=== PATIENT | male | born 1960 | race Hispanic/Latino ===

== ENCOUNTER 2019-06-18 13:33 | Emergency (ER) | payer OTHER ==
[2019-06-18] MEDS ORDERED: ONDANSETRON HCL 4 MG/2 ML VIAL ONE (14:21)
[2019-06-18] MEDS ORDERED: MORPHINE SULFATE 4 MG/1ML SYG ONE (14:21)
[2019-06-18 14:30] LABS: APPEARANCE,URINE Clear (CLEAR); BILIRUBIN,URINE Negative (NEGATIVE); COLOR,URINE Yellow (YELLOW); GLUCOSE, URINE (UA) >=1000 mg/dL (NEGATIVE); KETONES,URINE >=160 mg/dL (NEGATIVE); LEUKOCYTE ESTERASE ,URINE Negative (NEGATIVE); NITRATE,URINE Negative (NEGATIVE); OCCULT BLOOD,URINE Negative (NEGATIVE); PROTEIN,URINE Negative (NEGATIVE); UROBILINOGEN,URINE 0.2 mg/dL (0.2-1.0)
[2019-06-18] MEDS ORDERED: KETOROLAC TROMETHAMINE 30MG/ML ONE (15:29)
== END 2019-06-18 18:10 | disposition home or self-care (01) ==
LOC: EDH 13:33
DX: G89.18 Other acute postprocedural pain (principal); N48.89 Other specified disorders of penis; E11.9 Type 2 diabetes mellitus without complications; I10 Essential (primary) hypertension; Z72.0 Tobacco use; Z98.890 Other specified postprocedural states
CPT/HCPCS: 81003; 96374; 96375; 99284; J1885; J2270; J2405

== ENCOUNTER 2019-11-02 14:17 | Emergency (ER) | payer OTHER ==
[2019-11-02 15:47] LABS: BASOPHILS % (AUTO) 0.4 % (0.0-5.0); EOSINOPHILS % (AUTO) 0.3 % (0.0-8.0); HEMATOCRIT 41.7 % (42-54); LYMPHOCYTES % (AUTO) 9.4 % (21.0-51.0); MEAN CORPUSCULAR HEMOGLOBIN 31.9 pg (27.0-33.0); MEAN CORPUSCULAR HGB CONC 36.5 g/dL (32.0-36.0); MEAN CORPUSCULAR VOLUME 87.6 fL (79-99); MONOCYTES % (AUTO) 5.3 % (3.0-13.0); NEUTROPHILS % (AUTO) 83.5 % (40.0-77.0); PLATELET COUNT (AUTO) 255 K/uL (130-400); RED BLOOD CELL COUNT(AUTO) 4.76 MIL/uL (4.50-6.20); RED CELL DISTRIBUTION WIDTH 12.2 % (11.0-15.5); WHITE BLOOD COUNT (AUTO) 12.4 K/uL (4.8-10.8)
[2019-11-02 16:00] LABS: CREATININE 0.7 mg/dL (0.5-1.5); POTASSIUM 3.2 mmol/L (3.5-5.1)
[2019-11-02 16:05] LABS: ALBUMIN 3.8 g/dL (3.5-5.0); BILIRUBIN,TOTAL 0.7 mg/dL (0.2-1.0); TOTAL PROTEIN, SERUM 6.8 g/dL (6.0-8.3)
== END 2019-11-02 17:39 | disposition home or self-care (01) ==
LOC: EDH 14:17
DX: E11.649 Type 2 diabetes mellitus with hypoglycemia without coma (principal); I10 Essential (primary) hypertension; Z87.891 Personal history of nicotine dependence
CPT/HCPCS: 36415; 80053; 82948; 85025

== ENCOUNTER 2019-11-11 22:45 | Emergency (ER) | payer OTHER ==
[2019-11-11 23:45] LABS: BASOPHILS % (AUTO) 0.5 % (0.0-5.0); EOSINOPHILS % (AUTO) 0.6 % (0.0-8.0); HEMATOCRIT 40.1 % (42-54); LYMPHOCYTES % (AUTO) 9.8 % (21.0-51.0); MEAN CORPUSCULAR HEMOGLOBIN 31.1 pg (27.0-33.0); MEAN CORPUSCULAR HGB CONC 34.7 g/dL (32.0-36.0); MEAN CORPUSCULAR VOLUME 89.7 fL (79-99); MONOCYTES % (AUTO) 6.5 % (3.0-13.0); NEUTROPHILS % (AUTO) 81.9 % (40.0-77.0); PLATELET COUNT (AUTO) 276 K/uL (130-400); RED BLOOD CELL COUNT(AUTO) 4.47 MIL/uL (4.50-6.20); RED CELL DISTRIBUTION WIDTH 12.5 % (11.0-15.5); WHITE BLOOD COUNT (AUTO) 14.2 K/uL (4.8-10.8)
[2019-11-11 23:54] LABS: CREATININE 0.8 mg/dL (0.5-1.5)
[2019-11-11 23:59] LABS: ALBUMIN 3.6 g/dL (3.5-5.0); BILIRUBIN,TOTAL 0.4 mg/dL (0.2-1.0); TOTAL PROTEIN, SERUM 6.6 g/dL (6.0-8.3)
[2019-11-12 00:56] LABS: PLATELET MORPHOLOGY PLT CLUMPS PRESENT
[2019-11-12 01:57] LABS: APPEARANCE,URINE Clear (CLEAR); BILIRUBIN,URINE Negative (NEGATIVE); COLOR,URINE Yellow (YELLOW); GLUCOSE, URINE (UA) 500 mg/dL (NEGATIVE); KETONES,URINE Trace mg/dL (NEGATIVE); LEUKOCYTE ESTERASE ,URINE Negative (NEGATIVE); NITRATE,URINE Negative (NEGATIVE); OCCULT BLOOD,URINE Negative (NEGATIVE); PH,URINE 5.5 (5.0-8.0); PROTEIN,URINE Negative (NEGATIVE); UROBILINOGEN,URINE 0.2 mg/dL (0.2-1.0)
[2019-11-12 02:11] LABS: BACTERIA,URINE Rare /HPF (None Seen); MUCUS,URINE Rare LPF (None Seen); RBC,URINE 0-1 /HPF (0-1); SQUAMOUS EPITHELIAL CELL,UR 0-2 /HPF (0-2); WBC,URINE 0-1 /HPF (0-1)
== END 2019-11-12 02:32 | disposition home or self-care (01) ==
LOC: EDH 22:45
DX: E11.649 Type 2 diabetes mellitus with hypoglycemia without coma (principal); I10 Essential (primary) hypertension; G89.29 Other chronic pain; M54.5 Low back pain; Z72.0 Tobacco use
CPT/HCPCS: 36415; 80053; 81001; 82948; 85025

== ENCOUNTER 2020-09-12 13:50 | Emergency (ER) | payer OTHER, MEDICARE ==
[2020-09-12] MEDS ORDERED: LIDOCAINE HCL 1% 20 ML VIAL ONE (14:07)
[2020-09-12] MEDS ORDERED: TETANUS/DIPHTHERIA TOXOID [ADULT] 0.5 ML VIAL IM ONE (14:43)
[2020-09-12] MEDS ORDERED: CEFAZOLIN SODIUM 1 GM VIAL ONE (15:09)
== END 2020-09-12 15:43 | disposition home or self-care (01) ==
LOC: EDH 13:50
DX: S62.634A Displaced fracture of distal phalanx of right ring finger, initial encounter for closed fracture (principal); S61.214A Laceration without foreign body of right ring finger without damage to nail, initial encounter; E11.9 Type 2 diabetes mellitus without complications; I10 Essential (primary) hypertension; Z72.0 Tobacco use; W23.0XXA Caught, crushed, jammed, or pinched between moving objects, initial encounter; Y93.89 Activity, other specified; Y92.89 Other specified places as the place of occurrence of the external cause; Y99.8 Other external cause status
CPT/HCPCS: 12001; 90471; 73140; 90714; 96372; 99284; J0690

== ENCOUNTER 2021-09-22 23:22 | Observation (INO) | payer MEDICARE, OTHER ==
[~2021-09-22] VITALS: Ht 172.7 cm; Wt 82.1 kg
[2021-09-22] MEDS ORDERED: DEXTROSE 50%-WATER 50 ML DISP.SYRIN IV ONE (23:30)
[2021-09-23] MEDS ORDERED: DEXTROSE 50%-WATER 50 ML DISP.SYRIN IV ONE (00:30)
[2021-09-23 00:34] LABS: INR 1.02 (0.85-1.15); PROTHROMBIN TIME 11.1 SEC (9.6-11.6)
[2021-09-23 00:35] LABS: PARTIAL THROMBOPLASTIN TIME 23.4 SEC (26.3-35.5)
[2021-09-23 00:37] LABS: ALBUMIN 3.9 g/dL (3.5-5.0); BILIRUBIN,TOTAL 0.5 mg/dL (0.2-1.0); CREATININE 0.9 mg/dL (0.5-1.5); TOTAL PROTEIN, SERUM 6.8 g/dL (6.0-8.3)
[2021-09-23 00:40] LABS: POTASSIUM 2.7 mmol/L (3.5-5.1)
[2021-09-23 00:50] LABS: BASOPHILS % (AUTO) 0.7 % (0.0-5.0); EOSINOPHILS % (AUTO) 0.7 % (0.0-8.0); HEMATOCRIT 39.7 % (42-54); LYMPHOCYTES % (AUTO) 14.1 % (21.0-51.0); MEAN CORPUSCULAR HEMOGLOBIN 30.3 pg (27.0-33.0); MEAN CORPUSCULAR VOLUME 89.2 fL (79-99); MONOCYTES % (AUTO) 9.1 % (3.0-13.0); NEUTROPHILS % (AUTO) 73.9 % (40.0-77.0); PLATELET COUNT (AUTO) 254 K/uL (130-400); RED BLOOD CELL COUNT(AUTO) 4.45 MIL/uL (4.50-6.20); RED CELL DISTRIBUTION WIDTH 12.7 % (11.0-15.5); WHITE BLOOD COUNT (AUTO) 14.2 K/uL (4.8-10.8)
[2021-09-23] MEDS ORDERED: POTASSIUM BICARB/CIT AC 25 MEQ TABLET.EFF PO ONE (01:30)
[2021-09-23] MEDS ORDERED: CALCIUM CARB 500MG CHEW TAB PO ONE (02:00)
[2021-09-23] MEDS ORDERED: PHARMACY COMMUNICATION MISC SCH ×2 (02:00→02:30)
[2021-09-23] MEDS ORDERED: CALCIUM CARB 500MG CHEW TAB PO SCH ×2 (02:00→02:30)
[2021-09-23] MEDS ORDERED: NITROGLYCERIN 0.4 MG SL TAB SL PRN (02:30)
[2021-09-23] MEDS ORDERED: ONDANSETRON 4MG INJ IV PRN (02:30)
[2021-09-23] MEDS ORDERED: DEXTROSE 50%-WATER 50 ML DISP.SYRIN IV PRN ×2 (02:30→10:00)
[2021-09-23] MEDS ORDERED: ACETAMINOPHEN 325 MG TAB PO PRN ×2 (02:30)
[2021-09-23] MEDS ORDERED: LACTATED RINGERS 1000ML 1,000 ML IV SCH (02:30)
[2021-09-23] MEDS ORDERED: GLUCAGON 1MG KIT 1 MG ML IM PRN ×2 (02:30→10:00)
[2021-09-23 02:33] LABS: HEMOGLOBIN A1C 8.9 % (4.0-6.0)
[2021-09-23 05:53] LABS: BASOPHILS % (AUTO) 0.7 % (0.0-5.0); EOSINOPHILS % (AUTO) 0.9 % (0.0-8.0); HEMATOCRIT 43.1 % (42-54); LYMPHOCYTES % (AUTO) 24.4 % (21.0-51.0); MEAN CORPUSCULAR HEMOGLOBIN 30.7 pg (27.0-33.0); MEAN CORPUSCULAR HGB CONC 34.6 g/dL (32.0-36.0); MEAN CORPUSCULAR VOLUME 88.9 fL (79-99); MONOCYTES % (AUTO) 8.7 % (3.0-13.0); NEUTROPHILS % (AUTO) 64.4 % (40.0-77.0); PLATELET COUNT (AUTO) 220 K/uL (130-400); RED BLOOD CELL COUNT(AUTO) 4.85 MIL/uL (4.50-6.20); RED CELL DISTRIBUTION WIDTH 12.7 % (11.0-15.5); WHITE BLOOD COUNT (AUTO) 9.6 K/uL (4.8-10.8)
[2021-09-23 06:19] LABS: BILIRUBIN,TOTAL 0.8 mg/dL (0.2-1.0); CREATININE 0.7 mg/dL (0.5-1.5); MAGNESIUM 1.7 mg/dL (1.80-2.40); POTASSIUM 4.1 mmol/L (3.5-5.1); TOTAL PROTEIN, SERUM 7.4 g/dL (6.0-8.3)
[2021-09-23 07:00] LABS: AMPHET/METH SCREEN,URINE NEGATIVE (NEGATIVE); BARBITURATE SCREEN, URINE NEGATIVE (NEGATIVE); BENZODIAZEPINES SCREEN,URINE NEGATIVE (NEGATIVE); CANNABINOID SCREEN,URINE NEGATIVE (NEGATIVE); COCAINE SCREEN,URINE POSITIVE (NEGATIVE); OPIATE SCREEN,URINE NEGATIVE (NEGATIVE); PHENCYCLIDINE SCREEN,URINE POSITIVE (NEGATIVE)
[2021-09-23 07:16] LABS: APPEARANCE,URINE Clear (CLEAR); BILIRUBIN,URINE Negative (NEGATIVE); COLOR,URINE Yellow (YELLOW); GLUCOSE, URINE (UA) >=1000 mg/dL (NEGATIVE); KETONES,URINE Trace mg/dL (NEGATIVE); LEUKOCYTE ESTERASE ,URINE Negative (NEGATIVE); NITRATE,URINE Negative (NEGATIVE); OCCULT BLOOD,URINE Negative (NEGATIVE); PH,URINE 6.5 (5.0-8.0); PROTEIN,URINE Negative (NEGATIVE)
[2021-09-23 07:41] LABS: BACTERIA,URINE Rare /HPF (None Seen); RBC,URINE 0-1 /HPF (0-1); SQUAMOUS EPITHELIAL CELL,UR Rare /HPF (0-2)
[2021-09-23] MEDS: FAMOTIDINE 20MG TAB PO SCH ×2 (07:52→22:09)
[2021-09-23] MEDS: ENOXAPARIN SODIUM 30 MG/0.3 ML SQ SCH (07:53)
[2021-09-23 08:30] VITALS: BP 173/82
[2021-09-23] MEDS ORDERED: POTASSIUM CHLORIDE 20MEQ/100ML 100 ML IV PRN (10:00)
[2021-09-23] MEDS ORDERED: LIDOCAINE HCL-MPF 1% 2ML VIAL IV PRN (10:00)
[2021-09-23] MEDS ORDERED: POTASSIUM CHLORIDE 10% ELIXIR 20 MEQ/15 ML UDCUP PO PRN (10:00)
[2021-09-23] MEDS ORDERED: KCL 20 MEQ ERTAB PO PRN (10:00)
[2021-09-23] MEDS ORDERED: PHARMACY COMMUNICATION MISC PRN (10:30)
[2021-09-23] MEDS ORDERED: CHLORDIAZEPOXIDE HCL 25 MG CAP PO PRN (10:30)
[2021-09-23 11:05] VITALS: BP 163/75
[2021-09-23] MEDS: INSULIN HUMULIN R 100 UNIT/ML 3ML SQ SCH ×3 (12:37→21:00)
[2021-09-23] MEDS ORDERED: DONE10TA43 PO (12:50)
[2021-09-23] MEDS ORDERED: ONDA-104 PO (12:50)
[2021-09-23] MEDS ORDERED: FLUO20CA36 PO (12:50)
[2021-09-23] MEDS ORDERED: METF-527 PO (12:50)
[2021-09-23] MEDS ORDERED: LORA10TA7 PO (12:50)
[2021-09-23] MEDS ORDERED: ZINC50TA71 PO (12:50)
[2021-09-23 15:05] VITALS: BP 135/67
[2021-09-23] MEDS ORDERED: ACETAMINOPHEN WITH CODEINE 1 TAB TAB PO PRN (17:30)
[2021-09-23 19:58] VITALS: BP 142/62
[2021-09-23] MEDS ORDERED: TRAZODONE HCL 50 MG TAB PO SCH (21:00)
[2021-09-23] MEDS ORDERED: INSULIN GLARGINE 100 UNITS/ML 10 ML VIAL SQ SCH (21:00)
[2021-09-23 23:31] VITALS: BP 129/63
[2021-09-24 03:27] VITALS: BP 148/77
[2021-09-24] MEDS: INSULIN HUMULIN R 100 UNIT/ML 3ML SQ SCH ×3 (06:20→17:09)
[2021-09-24 06:59] LABS: BASOPHILS % (AUTO) 1.3 % (0.0-5.0); EOSINOPHILS % (AUTO) 3.3 % (0.0-8.0); HEMATOCRIT 41.7 % (42-54); LYMPHOCYTES % (AUTO) 42.2 % (21.0-51.0); MEAN CORPUSCULAR HEMOGLOBIN 30.2 pg (27.0-33.0); MEAN CORPUSCULAR HGB CONC 34.3 g/dL (32.0-36.0); MEAN CORPUSCULAR VOLUME 88.2 fL (79-99); MONOCYTES % (AUTO) 8.7 % (3.0-13.0); NEUTROPHILS % (AUTO) 43.5 % (40.0-77.0); PLATELET COUNT (AUTO) 224 K/uL (130-400); RED BLOOD CELL COUNT(AUTO) 4.73 MIL/uL (4.50-6.20); RED CELL DISTRIBUTION WIDTH 12.7 % (11.0-15.5); WHITE BLOOD COUNT (AUTO) 6.8 K/uL (4.8-10.8)
[2021-09-24 07:30] LABS: CREATININE 0.6 mg/dL (0.5-1.5); POTASSIUM 3.9 mmol/L (3.5-5.1)
[2021-09-24 08:00] VITALS: BP 134/72
[2021-09-24] MEDS ORDERED: THIAMINE HCL 100 MG TABLET PO SCH (09:00)
[2021-09-24] MEDS ORDERED: SERTRALINE HCL 50 MG TABLET PO SCH (09:00)
[2021-09-24] MEDS ORDERED: FLUOXETINE HCL 20 MG CAPSULE PO SCH (09:00)
[2021-09-24] MEDS ORDERED: FOLIC ACID 1 MG TABLET PO SCH (09:00)
[2021-09-24] MEDS: FAMOTIDINE 20MG TAB PO SCH (09:45)
[2021-09-24] MEDS: ENOXAPARIN SODIUM 30 MG/0.3 ML SQ SCH (09:46)
[2021-09-24] MEDS ORDERED: SERT50TA PO (11:15)
[2021-09-24] MEDS ORDERED: LINA5TAB PO (11:15)
[2021-09-24] MEDS ORDERED: INSLAN SQ (11:15)
[2021-09-24] MEDS ORDERED: TRAZ-185 PO (11:15)
[2021-09-24 12:00] VITALS: BP 134/76
[2021-09-24 16:00] VITALS: BP 121/63
== END 2021-09-24 22:30 | disposition home or self-care (01) ==
LOC: EDH 23:22 → EDHIP 09-23 02:12 → 3CH 09-23 08:30
PROVIDERS: ADMIT Hospitalist; ATTEND Hospitalist
DX: G93.41 Metabolic encephalopathy (principal); Z20.822 Contact with and (suspected) exposure to COVID-19; R65.10 Systemic inflammatory response syndrome (SIRS) of non-infectious origin without acute organ dysfunction; E11.649 Type 2 diabetes mellitus with hypoglycemia without coma; E87.6 Hypokalemia; R00.0 Tachycardia, unspecified; E86.9 Volume depletion, unspecified; I10 Essential (primary) hypertension; D72.829 Elevated white blood cell count, unspecified; E83.51 Hypocalcemia; E78.00 Pure hypercholesterolemia, unspecified; E78.5 Hyperlipidemia, unspecified; F32.A Depression, unspecified; F43.10 Post-traumatic stress disorder, unspecified; F17.210 Nicotine dependence, cigarettes, uncomplicated; Z79.4 Long term (current) use of insulin; Z79.84 Long term (current) use of oral hypoglycemic drugs; Z79.899 Other long term (current) drug therapy
CPT/HCPCS: 36415 ×3; 70450; 71045; 80048; 80053 ×2; 80305; 81001; 82150; 82330; 82550; 82948 ×9; 83036; 83690; 83735; 83874; 84145; 84484 ×2; 85025 ×3; 85610; 85730; 87040 ×2; 87635; 93005; 96361; 96372 ×2; 96374; 99285; G0378 ×43; J1650 ×2; J1815 ×3; J7070; J7120

== ENCOUNTER 2021-09-27 10:55 | Emergency (ER) | payer OTHER ==
[~2021-09-27] VITALS: Ht 175.3 cm; Wt 71.7 kg
[~2021-09-27 10:55] MED LIST: INSLAN SQ; LINA5TAB PO; METF-527 PO; SERT50TA PO; TRAZ-185 PO; ZINC50TA71 PO
[2021-09-27 11:24] LABS: BASOPHILS % (AUTO) 0.8 % (0.0-5.0); EOSINOPHILS % (AUTO) 0.9 % (0.0-8.0); HEMATOCRIT 41.3 % (42-54); MEAN CORPUSCULAR HEMOGLOBIN 30.6 pg (27.0-33.0); MEAN CORPUSCULAR HGB CONC 34.6 g/dL (32.0-36.0); MEAN CORPUSCULAR VOLUME 88.2 fL (79-99); MONOCYTES % (AUTO) 6.7 % (3.0-13.0); NEUTROPHILS % (AUTO) 75.9 % (40.0-77.0); PLATELET COUNT (AUTO) 238 K/uL (130-400); RED BLOOD CELL COUNT(AUTO) 4.68 MIL/uL (4.50-6.20); RED CELL DISTRIBUTION WIDTH 12.8 % (11.0-15.5)
[2021-09-27 11:30] LABS: CARBON DIOXIDE 29 mmol/L (21-32); CHLORIDE 98 mmol/L (101-111); CREATININE 0.8 mg/dL (0.5-1.5); GLOMERULAR FILTR. RATE CALC 104 mL/min (>60); GLUCOSE,RANDOM 260 mg/dL (70-105); SODIUM SERUM 136 mmol/L (136-145); UREA NITROGEN, BLOOD 20 mg/dL (7-18)
[2021-09-27 11:34] LABS: ALANINE AMINOTRANSFERASE 25 U/L (12-78); ALBUMIN 3.5 g/dL (3.5-5.0); ASPARTATE AMINOTRANSFERASE 14 U/L (10-37); BILIRUBIN,TOTAL 1.5 mg/dL (0.2-1.0); TOTAL PROTEIN, SERUM 6.7 g/dL (6.0-8.3)
[2021-09-27 11:42] LABS: LIPASE < 50 U/L (114-286)
[2021-09-27] MEDS ORDERED: ONDANSETRON 4MG INJ IVP ONE ×2 (13:00→15:30)
[2021-09-27] MEDS ORDERED: HYDROCODONE/ACETAMINOPHEN 10/325 MG TAB PO ONE (13:00)
[2021-09-27] MEDS ORDERED: FAMOTIDINE 20MG VIAL IV ONE (13:00)
[2021-09-27] MEDS ORDERED: 0.9% NACL 500ML IV.SOLN 500 ML IV SCH (14:30)
[2021-09-27] MEDS ORDERED: PANTOPRAZOLE 40 MG/VIAL ONE (15:13)
[2021-09-27] MEDS ORDERED: ONDANSETRON 4MG INJ ONE (15:13)
[2021-09-27] MEDS ORDERED: PANTOPRAZOLE 40 MG/VIAL IVP ONE (15:30)
[2021-09-27] MEDS ORDERED: PANT40TA55 PO (16:55)
[2021-09-27 17:18] VITALS: BP 153/70
== END 2021-09-27 17:45 | disposition home or self-care (01) ==
LOC: EDH 10:55
DX: K20.90 Esophagitis, unspecified without bleeding (principal); R42 Dizziness and giddiness; E11.9 Type 2 diabetes mellitus without complications; F17.200 Nicotine dependence, unspecified, uncomplicated; Z79.4 Long term (current) use of insulin; Z79.899 Other long term (current) drug therapy
CPT/HCPCS: 36415; 80053; 82948; 83690 ×2; 84484 ×2; 85025; 93005 ×2; 96361; 96374; 96375; 96376; 99284; C9113; J2405 ×2; J3490; J7040

== ENCOUNTER 2022-09-11 05:38 | Emergency (ER) | payer OTHER ==
[~2022-09-11] VITALS: Ht 175.3 cm; Wt 72.6 kg
[~2022-09-11 05:38] MED LIST changes: +PANT40TA55 PO
[2022-09-11] MEDS ORDERED: ACET-2079 PO (07:42)
[2022-09-11] MEDS ORDERED: IBUP-2070 PO (07:42)
[2022-09-11] MEDS ORDERED: HYDROCODONE/ACETAMINOPHEN 5/325 MG TAB ONE (07:54)
[2022-09-11] MEDS ORDERED: IBUPROFEN 600 MG TABLET ONE (07:54)
[2022-09-11] MEDS ORDERED: HYDROCODONE/ACETAMINOPHEN 5/325 MG TAB PO ONE (08:00)
[2022-09-11] MEDS ORDERED: IBUPROFEN 600 MG TABLET PO ONE (08:00)
[2022-09-11 08:01] VITALS: BP 153/71
== END 2022-09-11 08:20 | disposition home or self-care (01) ==
LOC: EDH 05:38
DX: S20.212A Contusion of left front wall of thorax, initial encounter (principal); E11.9 Type 2 diabetes mellitus without complications; I10 Essential (primary) hypertension; F17.200 Nicotine dependence, unspecified, uncomplicated; Z79.4 Long term (current) use of insulin; Z79.84 Long term (current) use of oral hypoglycemic drugs; Z79.899 Other long term (current) drug therapy; W01.0XXA Fall on same level from slipping, tripping and stumbling without subsequent striking against object, initial encounter; Y93.89 Activity, other specified; Y92.89 Other specified places as the place of occurrence of the external cause; Y99.8 Other external cause status
CPT/HCPCS: 71100